=== PATIENT | male | born 1940 | race Two or more races ===

== ENCOUNTER → 2023-10-13 12:32 | Outpatient (REF) | payer MEDICARE, OTHER, SELFPAY | LOC: CLAB 12:32 | PROVIDERS: ATTENDING PHYSICIAN Otolaryngology | DX: H60.391 Other infective otitis externa, right ear (principal) | CPT/HCPCS: 87070 ==

== ENCOUNTER 2024-07-30 07:17 | Day surgery (SDC) | payer MEDICARE, OTHER, SELFPAY ==
[2024-07-26 13:04] VITALS: BMI 27.9
--- NOTE | 2024-07-26 14:26 | HPS.HSE ---
Family Physician
-
Family Physician: INTERVIEWE UNKNOWN - PT NOT
Chief Complaint
-
Coronary artery disease, status post CABG.
History of Present Illness
The patient is an 83 year old male presenting today for coronary artery disease. His primary language is [place]ian. He is accompanied by his daughter Delfina today for translation purposes. The patient did undergo a CABG in 2016 for his
multivessel coronary artery disease. Fortunately, he does remain relatively asymptomatic despite this diagnosis. His other pertinent past medical history includes hypertension, which is overall well controlled with a multidrug regimen, dyslipidemia,
and peripheral vascular disease with left lower extremity claudication. He does currently smoke 1/2 pack per day of cigarettes and has been doing so since 18 years of age. It is recommended he proceed with a left cardiac catheterization at this time
given his complex medical history and current tobacco use. He denies any current complaints today such as chest pain and shortness of breath at rest, palpitations, nausea, vomiting, diarrhea, lightheadedness, dizziness, cough, sore throat, or fever.
Medical History
Past Medical History
Past Medical History: Reports Other
Additional Past Medical History:
1. Coronary artery disease, status post CABG 2015.
2. Hypertension.
3. Hyperlipidemia.
4. New onset atrial fibrillation, pharmacological therapy with Metoprolol Succinate and oral anticoagulation with Eliquis.
5. PACs.
6. Peripheral vascular disease with left lower extremity claudication.
7. Chronic kidney disease stage III.
8. GERD.
9. Degenerative disc disease.
10. Osteoarthritis.
11. Osteomyelitis of left fifth digit middle phalanx 11/2022.
12. Mild anemia.
13. Macular degeneration.
14. Chronic, mild thrombocytopenia.
15. Current tobacco abuse.
Past Surgical History: Reports Other
Additional Past Surgical History:
1. CABG.
2. Cholecystectomy.
3. Amputation of right index, middle, and ring fingers.
Social History
Tobacco: Smoker (He is a current 1/2 pack per day cigarette smoker who has been smoking since 18 years of age. )
Alcohol: Occasional
Personal:
Living: Other (He lives in a 2 story home with his and daughter. )
Family History
Family History: Not pertinent
Allergies / Home Medications
Allergy/Medication List:
Home medications:
1. Amlodipine 5 mg p.o. daily.
2. Eliquis 5 mg p.o. twice a day.
3. Isosorbide mononitrate 30 mg p.o. daily.
4. Losartan 100 mg p.o. daily.
5. Metoprolol Succinate 25 mg p.o. daily.
6. Pantoprazole 40 mg p.o. daily.
7. Rosuvastatin 20 mg p.o. daily.
Allergies: No known allergies.
Review of Systems
-
A 12 point ROS was completed and negative except as noted: Yes
Physical Exam
Vital Signs
Blood pressure 140/74. Heart rate 72. Respirations 18. Pulse ox 96% on room air.
Height 5 feet, 7.5 inches. Weight 82.1 kg. BMI 27.9.
Physical Exam
General: Well Developed, Well Nourished and No Apparent Distress
HEENT: NormoCephalic, Moist mucous membranes, Atraumatic and PERRLA
Respiratory: Clear
Cardiac: Regular Rhythm (with occasional ectopy. )
GI: Soft, Non Tender and Non Distended
Musculoskeletal: No Edema and Normal Gait & Station
Skin: Warm and Dry
Neuro: AO x 3 and Nonfocal/grossly intact
Laboratory Results
-
DIAGNOSTIC STUDIES as of 07/26/2024: White blood cell count 6.1. Hemoglobin 12.4. Platelet count 125,000. Sodium 142. Potassium 4.2. BUN 20. Creatinine 1.3. Glucose 94. Calcium 95. Magnesium 2.0. AST 27. ALT 29. Albumin 4.9.
EKG 07/26/2024: Sinus rhythm with premature atrial complexes. Inferior infarct, age undetermined.
Nuclear stress test 04/11/2021: Fixed defects in the basal inferior, mid inferior, and apical inferior segments consistent with infarction. The ejection fraction is 48% . This is a moderate risk study due to the pharmacologic agent used.
Echocardiogram 01/25/2026: Normal left ventricular systolic function. Left ventricular ejection fraction is 65%. Mild concentric left ventricular hypertrophy. No significant valvular disease. No prior study available for comparison.
Impression/Plan
-
IMPRESSION/PLAN:
1. Coronary artery disease, status post CABG: The patient is in need of a left cardiac catheterization with Dr. Thomas Robin on 07/30/2024. The benefits and risks of the procedure have been explained to the patient. The patient understands these
risks and wishes to proceed. He is aware to hold his Eliquis 2 days prior to his procedure. While holding Eliquis, he will start Aspirin. He will continue Aspirin daily, up to and including the morning of his catheterization.
[2024-07-30] VITALS (8 sets, daily range): BP systolic 143–191; BP diastolic 74–93; BMI 25.8
[2024-07-30] MEDS: LOW STRENGTH ASPIRIN 81 MG PO (08:02)
[2024-07-30] MEDS: NSS 229 ML IV (09:32)
--- NOTE | 2024-07-30 19:57 | ITS.CL.PN ---
Sleep Lab Technician - Procedure Note
Procedure
Procedure Note:
CARDIAC CATHETERIZATION REPORT
Date of Procedure: 07/30/2024
Referring: Dr. David Mayer MD
Indication: NSVT
PROCEDURE(S)
1. left heart catheterization
2. coronary angiography
3. bypass graft angiography
ACCESS: 6F left radial artery (closure: radial band)
CATHETERS
1. 6F VEE
2. 6F JL4
3. 6F JR4
4. 6F Multipurpose
5. 6F AL1
MODERATE SEDATION: 67 minutes of moderate sedation was utilized. An independent emergency medical technician/driver was present to assist with and help manage the patient's level of consciousness and physiologic status.
ULTRASOUND GUIDED VASCULAR ACCESS (left radial artery): Ultrasound was utilized for vascular access. The vessel was visualized under ultrasound and noted to be patent. An image of the vessel was stored permanently in the patient's medical record.
Under direct ultrasound guidance, vascular access was obtained using a modified Seldinger technique and a 6 [place] sheath was placed.
HEMODYNAMIC DATA
LV 169/13 (EDP 23) mmHg
AO 175/75 (mean 114) mmHg
CORONARY ANGIOGRAPHY
Dominance: right
LM: moderate caliber vessel with minimal disease
LAD: diffusely diseased with competitive flow visualized in the mid vessel originating from the FRAZIER touchdown
LCx: diffusely diseased with one marginal branch filling antegrade and the distal vessel demonstrating competitive flow
RCA: proximally occluded after an early marginal branch
BYPASS GRAFT ANGIOGRAPHY
FRAZIER-LAD: taken as a pedicle and forms a patent anastomosis with the mid-LAD providing robust flow to the LAD
SVG-PDA: patent, fills the RDPA and RPL system
SVG-Diag: patent, fills a branching diagonal back to its LAD origin
SVG-OM: patent, fills a distal marginal branch and a more proximal marginal branch via retrograde flow
RADIATION: dose 1183 mGy; DAP 79.5 Gy*cm2; fluoroscopy time 23.7 min
CONCLUSIONS
1. coronary artery disease status post CABG with patent bypass grafts as described
2. elevated LV filling pressure and no aortic stenosis
RECOMMENDATIONS
1. expectant management after cardiac catheterization via right radial approach
2. aggressive secondary prevention of coronary artery disease
3. medical management of CHF and NSVT, likely secondary to underlying cardiomyopathy rather than ischemia
Copy to: Dr. David Mayer MD (director of counseling); [ ] (PCP)
Signed: Thomas Robin MD, PhD
== END 2024-07-30 14:00 | disposition home or self-care (01) ==
LOC: CATH 07:17
PROVIDERS: ATTENDING PHYSICIAN Student in an Organized Health Care Education/Training Program; FAMILY PHYSICIAN Internal Medicine Cardiovascular Disease; OTHER PHYSICIAN Internal Medicine Cardiovascular Disease
DX: I47.20 Ventricular tachycardia, unspecified (principal); I25.10 Atherosclerotic heart disease of native coronary artery without angina pectoris; Z95.1 Presence of aortocoronary bypass graft; I12.9 Hypertensive chronic kidney disease with stage 1 through stage 4 chronic kidney disease, or unspecified chronic kidney disease; N18.30 Chronic kidney disease, stage 3 unspecified; E78.5 Hyperlipidemia, unspecified; I48.91 Unspecified atrial fibrillation; K21.9 Gastro-esophageal reflux disease without esophagitis; I73.9 Peripheral vascular disease, unspecified; M19.90 Unspecified osteoarthritis, unspecified site; F17.210 Nicotine dependence, cigarettes, uncomplicated; Z79.01 Long term (current) use of anticoagulants; Z79.82 Long term (current) use of aspirin
CPT/HCPCS: 99152; 99153; C1769; C1894; 76937; 93459; Q9967

== ENCOUNTER → 2024-08-11 07:53 | Outpatient (REF) | payer MEDICARE, OTHER, SELFPAY | LOC: HWRCS 07:53 | PROVIDERS: ATTENDING PHYSICIAN Internal Medicine Cardiovascular Disease; FAMILY PHYSICIAN Internal Medicine | DX: I47.20 Ventricular tachycardia, unspecified (principal); I25.5 Ischemic cardiomyopathy | CPT/HCPCS: 93306 ==

== ENCOUNTER → 2024-12-20 10:16 | Outpatient (REF) | payer MEDICARE, OTHER, SELFPAY | LOC: HWRAD 10:16 | PROVIDERS: ATTENDING PHYSICIAN Internal Medicine | DX: I25.10 Atherosclerotic heart disease of native coronary artery without angina pectoris (principal); R07.89 Other chest pain | CPT/HCPCS: 71046 ==

== ENCOUNTER 2025-06-01 22:04 | Inpatient (IN) | payer MEDICARE, OTHER, SELFPAY ==
[2025-06-01 19:52] VITALS: BP 125/72
[2025-06-01 20:15] LABS: Hematocrit 30.3 % (39.0-52.0); Hemoglobin 10.4 g/dL (13.0-18.0); Mean Corp Hgb Conc. 34.3 g/dL (33.0-37.0); Mean Corpuscular Volume 85.8 fL (80.0-94.0); Nucleated Red Blood Cells % 0 % (-); Platelet Count 118 10^3/uL (130-400); Red Cell Dist. Width 15.1 % (11.5-14.5)
--- NOTE | 2025-06-01 20:31 | ED.GENMED ---
History of Present Illness
<Cyndee Hughes MD, Resident - Last Filed: 06/01/25 21:18>
General
Chief Complaint: Breathing Problem
Source: patient and family (daughter interpreting )
Exam Limitations: none
Time Seen by Provider: 06/01/25 20:11
Nursing documentation reviewed up to this point in time: agreed with
History of Present Illness
History of Present Illness:
84yo M with a hx of CAD (s/p CABG 10yr prior), active smoking, HTN, & HLD who presents with subacute dyspnea on exertion, orthopnea, & cough.
About 1 week ago, pt developed a cough (minimally productive). He subsequently began to develop worsening DAIGLE & orthopnea, needing to sleep with head propped up on pillows. Pt states it feels like he is drowning. Has not had this experience prior
except SOB in advance of his [place] requiring CABG yrs ago. Denies any HERRERA. Denies any f/c or sick contacts. Denies any CP. Pt had a fall at home a few days prior to the development of sx, where he landed on his L side and was having L rib pain for a
few days. Denies LOC or palpitations at that time; tripped outside.
Last echo Aug 2024 without reduced LVEF. Pt does not use any inhalers at home, no diuretics. Per daughter, no dx of COPD, CHF, or a fib. Per daughter, pt had recent holter monitoring completed that was read as normal. Pt takes losartan, amlodipine,
metoprolol, & eliquis.
Past History
<Cyndee Hughes MD, Resident - Last Filed: 06/01/25 21:18>
Past History
ED Past Medical History: GERD, HTN, Hypercholesterolemia and TX
ED Past Surgical History: Cardiac
Patient has exhibited threatening behavior?: No
Social History
Tobacco: Smoker
Review of Systems
<Cyndee Hughes MD, Resident - Last Filed: 06/01/25 21:18>
Review of Systems
All Other Systems: ROS reviewed and negative except as documented in HPI and ROS
Constitutional: Reports no symptoms
EENT: Reports no symptoms
Respiratory: Reports cough, trouble breathing and other (orthopnea)
Cardiac: Reports palpitations
ABD/GI: Reports no symptoms
: Reports no symptoms
Musculoskeletal: Reports no symptoms
Skin: Reports no symptoms
Neurological: Reports no symptoms
Psychiatric: Reports no symptoms
Phy Exam
<Cyndee Hughes MD, Resident - Last Filed: 06/01/25 21:18>
General Physical Exam
General Presentation: mild distress
General age: appears stated age
General Skin: warm and dry
General Habitus: normal
General Mental: alert
General Hydration: appears well hydrated
Cardiovascular Exam
Cardiovascular Exam: no edema and irregularly irregular
Heart Sounds: normal
Pulmonary Exam
Pulmonary Exam: no crackles (basilar ), generalized wheezing (wheezing in L lung marrufo) and respiratory distress (pt with tachypnea but able to speak in full sentences, no retractions or accessory muscle use; satting ~90% on RA )
Gastrointestinal Exam
Gastrointestinal Exam: non tender and non distended
Neurological Exam
Neurological Exam: alert
Musculoskeletal Exam
Musculoskeletal Exam: no edema
Skin Exam
Skin Exam: normal color and warm/dry
Psychiatric Exam
Psychiatric Exam: normal mood/affect
Scores
<Cyndee Hughes MD, Resident - Last Filed: 06/01/25 21:18>
Heart Failure Risk
Heart Failure Risk Score: Yes
History of Stroke or TIA: No
History of intubation for respiratory distress: No
Heart rate on ED arrival >/= 110: No
SaO2 <90% on arrival on room air: Yes
HR >/=110 during 3min walk test (or too ill to perform test): No
ECG has acute ischemic changes: No
Urea >/=12mmol/L (BUN 33.6mg/dL): No
Serum CO2>/=35mmol/L: No
Troponin I or T elevated to [place] Level (0.4mg/dL): No
NT-proBNP >/=5,000ng/L (5,000pg/ml): Yes
HF Risk Score: 2
Admission Status: MEDIUM RISK 9.2% Consider observation or discharge to home with homecare & f/u visit to PCP/Bus Escort, or SNF for treatment
Course
<Cyndee Hughes MD, Resident - Last Filed: 06/01/25 21:18>
Orders/Labs/Results
Orders:
Orders
06/01/25 19:56
Electrocardiogram (*1) Urgent
Reason for Study: Chest Pain
EKG- Treatment ONCE
06/01/25 20:08
Complete Blood Count/With Diff Urgent
Comprehensive Metabolic Panel Urgent
NT-proBNP Urgent
Comment: ADD ON
Troponin I Urgent
06/01/25 20:21
CXR Port [CR Chest Portable - 1 View] Urgent
Comment:
Reason For Exam: sob
Reason Study Needs to be Portable: Patient Unstable
06/01/25 20:42
Add On- LAB Urgent
Tests Added?: pro BNP
Ipratropium/Albuterol Sulfate [Duoneb] 3 ml INH R NOW ONE
06/01/25 20:47
COVID-19 Antigen Stat
Source: Nasal Swab
Influenza A+B Rapid Molecular Urgent
KRISTIE Source: Nasal Swab
Specimen Description:
06/01/25 20:53
Furosemide [Lasix] 40 mg IV NOW STA
Abnormal Lab Results
06/01/25
20:08
RBC 3.53 L 10^6/uL
(4.70-6.10)
Hgb 10.4 L g/dL
(13.0-18.0)
Hct 30.3 L %
(39.0-52.0)
RDW 15.1 H %
(11.5-14.5)
Plt Count 118 L 10^3/uL
(130-400)
Absolute Lymphs (auto) 0.9 L 10^3/uL
(1.2-3.4)
Neutrophils % 75.8 H %
(42.2-75.2)
Lymphocytes % 14.5 L %
(20.5-51.1)
Chloride 114 H mmol/L
(98-107)
Carbon Dioxide 20 L mmol/L
(22-30)
Creatinine 1.4 H mg/dL
(0.7-1.3)
Glucose 112 H mg/dl
(70-99)
Total Bilirubin 1.6 H mg/dl
(0.2-1.3)
06/01/25 20:08
06/01/25 20:08
Vital Signs
Initial and Last Documented VS:
Initial Vital Signs
Temp Pulse Resp BP Pulse Ox
98.5 F 84 28 125/72 91
06/01/25 19:52 06/01/25 19:52 06/01/25 19:52 06/01/25 19:52 06/01/25 19:52
Last Documented Vital Signs
Temp Pulse Resp BP Pulse Ox
98.5 F 75 40 125/72 94
06/01/25 19:52 06/01/25 20:17 06/01/25 20:17 06/01/25 19:52 06/01/25 20:32
<Carlos Enrique Pimentel MD - Last Filed: 06/01/25 21:07>
Orders/Labs/Results
Orders:
Orders
06/01/25 19:56
Electrocardiogram (*1) Urgent
Reason for Study: Chest Pain
EKG- Treatment ONCE
06/01/25 20:08
Complete Blood Count/With Diff Urgent
Comprehensive Metabolic Panel Urgent
NT-proBNP Urgent
Comment: ADD ON
Troponin I Urgent
06/01/25 20:21
CXR Port [CR Chest Portable - 1 View] Urgent
Comment:
Reason For Exam: sob
Reason Study Needs to be Portable: Patient Unstable
06/01/25 20:42
Add On- LAB Urgent
Tests Added?: pro BNP
Ipratropium/Albuterol Sulfate [Duoneb] 3 ml INH R NOW ONE
06/01/25 20:47
COVID-19 Antigen Stat
Source: Nasal Swab
Influenza A+B Rapid Molecular Urgent
KRISTIE Source: Nasal Swab
Specimen Description:
06/01/25 20:53
Furosemide [Lasix] 40 mg IV NOW STA
Abnormal Lab Results
06/01/25
20:08
RBC 3.53 L 10^6/uL
(4.70-6.10)
Hgb 10.4 L g/dL
(13.0-18.0)
Hct 30.3 L %
(39.0-52.0)
RDW 15.1 H %
(11.5-14.5)
Plt Count 118 L 10^3/uL
(130-400)
Absolute Lymphs (auto) 0.9 L 10^3/uL
(1.2-3.4)
Neutrophils % 75.8 H %
(42.2-75.2)
Lymphocytes % 14.5 L %
(20.5-51.1)
Chloride 114 H mmol/L
(98-107)
Carbon Dioxide 20 L mmol/L
(22-30)
Creatinine 1.4 H mg/dL
(0.7-1.3)
Glucose 112 H mg/dl
(70-99)
Total Bilirubin 1.6 H mg/dl
(0.2-1.3)
06/01/25 20:08
06/01/25 20:08
Vital Signs
Initial and Last Documented VS:
Initial Vital Signs
Temp Pulse Resp BP Pulse Ox
98.5 F 84 28 125/72 91
06/01/25 19:52 06/01/25 19:52 06/01/25 19:52 06/01/25 19:52 06/01/25 19:52
Last Documented Vital Signs
Temp Pulse Resp BP Pulse Ox
98.5 F 75 40 125/72 94
06/01/25 19:52 06/01/25 20:17 06/01/25 20:17 06/01/25 19:52 06/01/25 20:32
<Cyndee Hughes MD, Resident - Last Filed: 06/01/25 21:18>
MDM/Problems Addressed
Differential Diagnosis Includes:
Ddx:
Acute CHF (HFpEF)
PNA
Symptomatic a fib
COPD exacerbation
^may be combination of all exacerbating/triggering one another
Less likely PE, TX
MDM/Problems Addressed:
- EKG
- CMP
- Pro-BNP
- Covid, flu
- Troponin
- CXR
- Duonebs
- 2L O2 NC
- Plan for admission
<Cyndee Hughes MD, Resident - Last Filed: 06/01/25 21:18>
*Pulse Oximetry
SaO2: 94
Oxygen Mode of Delivery: Room air
Patient hypoxic: yes
*Critical Care Note
Total Time (30-74mins, 75-104mins- exclusive of procedures): Not Applicable
<Cyndee Hughes MD, Resident - Last Filed: 06/01/25 21:18>
Update Note
Update Note:
EKG demonstrating a fib; pt already on eliquis & metorpolol and with HR 75, rate controlled. Potential pre-existing dx, although pt & daughter do not recall that.
Trop not elevated but not <0.012 (at 0.024) likely 2/2 demand ischemia
CXR with some diaphragmatic flattening & with extensive cephalization c/w mild COPD & suspected CHF. Will give 40mg IV lasix.
ED Attending Note
<Cyndee Hughes MD, Resident - Last Filed: 06/01/25 21:18>
-
Portions of this chart may have been created with voice recognition software.� Occasional wrong word or��sound alike� substitutions may have occurred due to the inherent limitations of voice recognition software.
<Carlos Enrique Pimentel MD - Last Filed: 06/01/25 21:07>
ED Attending Note
Patient seen and examined by attending physician: Yes
I performed a history and physical exam of patient and discussed management with resident, I reviewed resident's note and agree with documented findings and plan of care.: Yes
ED Attending Note:
84-year-old male progressive shortness of breath over over a week to 10 days. Dyspnea on exertion. Some intermittent vague chest pain. No fever chills or cough.
On exam patient's pulse ox is 88-90 on room air. He is not however pursed lip breathing or in any acute respiratory distress. Lungs have rales in the bases with some mild expiratory wheezing. Heart irregular irregular and bradycardic. Abdomen
nontender. He is Mild lower extremity edema. He has sternotomy scar.
Anemia. EKG shows atrial fibrillation which is new. Mild renal insufficiency. Chest x-ray shows cephalization.
Impression is shortness of breath probably multifactorial. Patient is a smoker and likely has some COPD component but likely is also in heart failure. Warrants inpatient care
Discharge Plan
Departure
Patient Disposition: Admit
Date of Disposition: 06/01/25
Time of Disposition: 20:54
Admit to doctor: Laury
Presentation/result/management discussed w/ accepting MD/DO: Hospitalist
Patient with high blood pressure during this ER visit?: No
Condition: Fair
Discharge Problem:
Acute dyspnea, Orthopnea
Prescriptions:
No Action
isosorbide mononitrate 30 mg Tablet Extended Release 24 Hr
30 mg PO DAILY
amlodipine 5 mg Tablet
5 mg PO DAILY
pantoprazole 40 mg Tablet,Delayed Release (Dr/Ec)
40 mg PO DAILY
metoprolol succinate 25 mg Tablet Extended Release 24 Hr
25 mg PO DAILY
losartan 100 mg Tablet
100 mg PO DAILY
rosuvastatin 20 mg Tablet
20 mg PO DAILY
Eliquis 5 mg Tablet
5 mg PO BID
PreserVision AREDS-2 250-90-40-1 mg Capsule
1 tab PO DAILY
Referrals:
Richard Harkins MD [Family Provider, Internal Medicine]
Interventions
Interventions:
*Risk Screen - Suicide Last Done: 06/01/25 19:52
*General Assessment Last Done: 06/01/25 19:52
*Neglect/Abuse Screening Last Done: 06/01/25 20:17
*ED COVID-19 Vaccine History Last Done: 06/01/25 20:17
*ED Influenza Vaccine History Last Done: 06/01/25 20:17
Discharge Date and Time
Print Language: Prydeinig
[2025-06-01 20:38] LABS: ALT (SGPT) 21 U/L (0-50); AST (SGOT) 26 U/L (17-59); Albumin 4.2 g/dl (3.5-5.0); Alkaline Phosphatase 53 U/L (38-126); Blood Urea Nitrogen 20 mg/dl (9-20); Calcium 9.2 mg/dl (8.4-10.2); Carbon Dioxide 20 mmol/L (22-30); Chloride 114 mmol/L (98-107); Glucose 112 mg/dl (70-99); Potassium 4.4 mmol/L (3.5-5.1); Sodium 141 mmol/L (135-145); Total Protein 7.2 g/dl (6.3-8.2); Troponin I 0.024 ng/ml; eGFR 49.87
[2025-06-01] MEDS: DUONEB 3 ML INH (20:53)
[2025-06-01 21:00] VITALS: BP 160/57
[2025-06-01] MEDS: LASIX 40 MG IV (21:00)
--- NOTE | 2025-06-01 21:07 | HPS.HSE ---
Addendum entered and electronically signed by Klaudia Kirk MD 06/01/25 21:47:
This is an addendum to H&P written by Gudelia Peraza on 06/01/2025. �Patient seen and examined independently with BOTTOM [employer]ER.
84-year-old male past medical history of CAD status post CABG, atrial fibrillation on Eliquis, PACs, hypertension, hyperlipidemia, peripheral vascular disease, CKD 3, GERD, degenerative disease, osteoarthritis, osteomyelitis of left fifth middle
phalanx, mild anemia, macular degeneration, chronic thrombocytopenia, active smoker, presenting with 1 week of worsening cough, shortness of breath with exertion and orthopnea. �Did have some chest pressure with breathing earlier.
He fell few days ago onto his left side left rib pain. �No chest pain.
Vital signs unremarkable. �O2 saturation 90% room air.
Labs show cardiac BNP 6000. �Troponin 0.024. �Creatinine stable 1.4. �Chest x-ray pending. �EKG shows atrial fibrillation without ischemic changes
Patient with likely acute CHF exacerbation with component of undiagnosed COPD. �Lasix, cardiology. �COVID and flu pending. �Trend troponins. �DuoNebs as needed.
Original Note:
Family Physician
-
Family Physician: Richard Harkins
Chief Complaint
-
dyspnea on exertion, orthopnea and moist cough
History of Present Illness
Patient is a 84-year-old male with past medical history significant for CAD, hypertension, hyperlipidemia, atrial fibrillation, chronic kidney disease stage III and GERD who presented to [facility] ED for evaluation for dyspnea on exertion, orthopnea and
moist cough. Patient is primary Irish speaking, daughter at bedside to assist in translation. Patient reports a fall 10-12 days ago where he tripped in garden and fell on left side, denies head strike or major injury. He states following that is
when mosit cough, nonproductive began with increasing exertional dyspnea and orthopnea. Denies recent fever, chills, palpitations, nausea, vomiting, constipation, diarrhea or urinary symptoms.
Medical History
Past Medical History
Past Medical History: Reports Other
Additional Past Medical History:
coronary artery disease, status post CABG 2015
hypertension
hyperlipidemia
atrial fibrillation, pharmacological therapy with Metoprolol Succinate and oral anticoagulation with Eliquis
PACs
peripheral vascular disease with left lower extremity claudication
chronic kidney disease stage III
GERD
degenerative disc disease
osteoarthritis
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
mild anemia
macular degeneration
chronic, mild thrombocytopenia
current tobacco abuse
Past Surgical History: Reports Other
Additional Past Surgical History:
CABG
cholecystectomy
amputation of right index, middle, and ring fingers
Social History
Tobacco: Smoker (He is a current 1/2 pack per day cigarette smoker who has been smoking since 18 years of age. )
Alcohol: Occasional
Personal:
Living: With Family (He lives in a 2 story home with his and daughter. )
Family History
Family History: Not pertinent
Allergies / Home Medications
Allergies reflects when Allergies were last updated in [employer].
Home Medications with original date entered in [employer]
Allergy/Medication List:
Allergies
Allergy/AdvReac Type Severity Reaction Status Date / Time
No Known Allergies Allergy Verified 06/01/25 19:50
Home Medications
amlodipine 5 mg tablet 5 mg PO DAILY 07/22/24
apixaban 5 mg tablet (Eliquis) 5 mg PO BID Blood Clot Prevention/Tx 07/22/24
isosorbide mononitrate 30 mg tablet,extended release 24 hr 30 mg PO DAILY Heart Disease/Condition 07/22/24
losartan 100 mg tablet 100 mg PO DAILY Blood Pressure 07/22/24
metoprolol succinate 25 mg tablet,extended release 24 hr 25 mg PO DAILY Heart Disease/Condition 07/22/24
pantoprazole 40 mg tablet,delayed release 40 mg PO DAILY Gastrointestinal Issue 07/22/24
rosuvastatin 20 mg tablet 20 mg PO DAILY High Cholesterol 07/22/24
vit C 250 mg-vit E 90 mg-zinc 40 mg-copper 1 [id number] capsule (PreserVision AREDS-2) 1 tab PO DAILY Supplement 07/30/24
Review of Systems
-
History Source: Patient and Family
Constitutional: Reports Weight Loss; Denies Fever, Weight Gain or Chills
EENT: Denies Sore Throat
Respiratory: Reports Cough (moist, nonproductive ) and Trouble Breathing (exertional dyspnea ); Denies Hemoptysis
Cardiac: Reports Chest Pain; Denies Diaphoresis, Palpitations or Syncope
Abdomen/GI: Denies Abdominal Pain, Nausea, Vomiting or Diarrhea
: Denies Dysuria, Frequency or Urgency
Musculoskeletal: Denies Joint Pain
Skin: Denies Rash
Neurological: Denies Dizzy, Headache, Weakness or Numbness
Endocrine: Denies Polyuria
Physical Exam
Vital Signs
Vital Signs
Temp Pulse Resp BP Pulse Ox
98.5 F 75 40 125/72 94
06/01/25 19:52 06/01/25 20:17 06/01/25 20:17 06/01/25 19:52 06/01/25 20:32
Physical Exam
General: Well Developed, Well Nourished, No Apparent Distress, Comfortable and Conversant
HEENT: NormoCephalic, Moist mucous membranes, PERRLA, Nose Appears Normal and Ears Appear Normal
Respiratory: Clear, Wheezes, Non Labored Respirations and Other (Oxygen 2L NC)
Cardiac: Irregular Rhythm; No Murmur or Peripheral Edema
GI: Soft, Non Tender, Non Distended and Normal Bowel Sounds
Musculoskeletal: No Clubbing, No Cyanosis and No Edema
Skin: Warm and IV/Catheter Site
Neuro: Awake and AO x 3
Psych: Calm
Laboratory Results
-
06/01/25 20:08
06/01/25 20:08
Laboratory Results
Total Bilirubin 1.6 mg/dl (0.2-1.3) H 06/01/25 20:08
AST 26 U/L (17-59) 06/01/25 20:08
ALT 21 U/L (0-50) 06/01/25 20:08
Alkaline Phosphatase 53 U/L (38-126) 06/01/25 20:08
Troponin I 0.024 ng/ml 06/01/25 20:08
Data Reviewed
-
Medical Tests (Nuc Med, Echo, EKG etc): Report Reviewed by me (EKG: ATRIAL FIBRILLATION MINIMAL VOLTAGE CRITERIA FOR LVH, MAY BE NORMAL VARIANT ( R in aVL ) INFERIOR INFARCT (CITED ON OR BEFORE 26-Jul-2024))
Lab Data: Labs Reviewed by me (creat 1.4, eGFR 49.87, trop 0.024, pBNP 5970)
Impression/Plan
-
IMPRESSION/PLAN:
#exertional dyspnea, orthopnea and moist nonproductive cough 2/2 PNA vs. CHF vs. symptomatic a-fib
no previous CHF diagnosis, no COPD diagnosis
wheezes on exam in ED with Neb treatment that was mildly effective per patient with dyspnea
trop 0.024, pBNP 5970
EKG: ATRIAL FIBRILLATION
MINIMAL VOLTAGE CRITERIA FOR LVH, MAY BE NORMAL VARIANT ( R in aVL )
INFERIOR INFARCT (CITED ON OR BEFORE 26-Jul-2024)
CXR: pending
- Admit to telemetry
- Consult cardiology
- IV Lasix 40mg daily
- daily weights
- I & Os
- trend troponin
#hypertension
- continue amlodipine and losartan
#hyperlipidemia
- continue rosuvastatin
#atrial fibrillation
- continue Eliquis and metoprolol
#GERD
- continue pantoprazole
#nicotine dependency
daily smoke, approximately 1/2 pack per day
- nicotine patch
- encourage cessation
#CAD
s/p CABG
- continue Imdur
#chronic kidney disease stage III
creat 1.4, eGFR 49.87
appears stable
- monitor BMP
Code status: full code
DVT prophylaxis: Eliquis
[2025-06-01 21:22] LABS: COVID-19 Antigen Negative (Negative)
[2025-06-01 22:00] VITALS: BP 123/107
[2025-06-01 23:00] VITALS: BP 134/69
--- NOTE | 2025-06-01 23:07 | PTCARENOTE ---
received pt from ED. pt pulled over from bed to stretcher. pt A&O x 3, Norwegian speaking, daughter at bedside. pt offers no current complains. bed alarm on, call huddleston within reach. plan of care ongoing.
[2025-06-02 02:14] LABS: Troponin I 0.028 ng/ml
[2025-06-02 03:00] VITALS: BP 160/91
[2025-06-02 08:00] VITALS: BP 95/73
[2025-06-02 08:08] LABS: Troponin I 0.025 ng/ml
[2025-06-02 08:13] LABS: Blood Urea Nitrogen 19 mg/dl (9-20); Calcium 9.2 mg/dl (8.4-10.2); Carbon Dioxide 26 mmol/L (22-30); Chloride 111 mmol/L (98-107); Glucose 124 mg/dl (70-99); HDL Cholesterol 30 mg/dl; LDL Cholesterol, Calculated 34 mg/dl; Potassium 3.5 mmol/L (3.5-5.1); Sodium 142 mmol/L (135-145); Very Low Density Lipoprotein 22 mg/dl (0-30); eGFR 49.87
[2025-06-02] MEDS: PROTONIX 40 MG PO (09:09)
[2025-06-02] MEDS: NORVASC 5 MG PO (09:09)
[2025-06-02] MEDS: ELIQUIS 5 MG PO ×2 (09:10→19:57)
[2025-06-02] MEDS: IMDUR (EXTENDED RELEASE) 30 MG PO (09:10)
[2025-06-02] MEDS: OCUVITE SOFTGEL 1 CAP PO (09:10)
[2025-06-02] MEDS: NICODERM TRANSDERMAL 14 MG TRANSDERM (09:10)
[2025-06-02] MEDS: COZAAR 100 MG PO (09:10)
[2025-06-02] MEDS: CRESTOR 20 MG PO (09:10)
[2025-06-02] MEDS: TOPROL XL 25 MG PO (09:11)
[2025-06-02] MEDS: LASIX 40 MG IV ×2 (09:11→19:57)
--- NOTE | 2025-06-02 10:03 | CON.CAR ---
Consultation
Consultation Request
Date/Time Consultation Requested: 06/01/2025 at 22:45
Date/Time Consultation Performed: 06/02/2025 at 9:30
Requesting Provider: FREDO Shukla
Performing Provider: Rohit Sánchez MD
Reason for Consultation: SOB
Medical History
-
Chief Complaint: cough, dyspnea
History of Present Illness:
84-year-old man with past medical history of multivessel CAD s/p CABG, hypertension, hyperlipidemia, CKD, persistent atrial fibrillation, peripheral vascular disease, and active tobacco use who presents with cough and dyspnea for the past 5 days.
Cough is nonproductive. He denies fever or sick contacts. He does have some orthopnea but no lower extremity edema. He has been losing weight. He has received 2 doses of IV Lasix and breathing feels improved.
Past Medical History
Past Medical History: Other (As above)
Past Surgical History: Cardiac (CABG)
Social History
Tobacco: Smoker
Living: With Family
Family History
Family History: Reviewed & Not Pertinent
Allergies / Home Medications
Allergy/AdvReac Type Severity Reaction Status Date / Time
No Known Allergies Allergy Verified 06/01/25 19:50
�Medication �Instructions �Recorded �Confirmed �Type
amlodipine 5 mg tablet 5 mg PO DAILY 07/22/24 06/01/25 History
apixaban 5 mg tablet (Eliquis) 5 mg PO BID Blood Clot 07/22/24 06/01/25 History
Prevention/Tx
isosorbide mononitrate 30 mg 30 mg PO DAILY Heart 07/22/24 06/01/25 History
tablet,extended release 24 hr Disease/Condition
losartan 100 mg tablet 100 mg PO DAILY Blood Pressure 07/22/24 06/01/25 History
metoprolol succinate 25 mg 25 mg PO DAILY Heart 07/22/24 06/01/25 History
tablet,extended release 24 hr Disease/Condition
pantoprazole 40 mg tablet,delayed 40 mg PO DAILY Gastrointestinal 07/22/24 06/01/25 History
release Issue
rosuvastatin 20 mg tablet 20 mg PO DAILY High Cholesterol 07/22/24 06/01/25 History
vit C 250 mg-vit E 90 mg-zinc 40 1 tab PO DAILY Supplement 07/30/24 06/01/25 History
mg-copper 1 [id number]
capsule (PreserVision AREDS-2)
Review of Systems
-
All other systems: Negative unless noted
Physical Exam
Vital Signs
Temp Pulse Resp BP Pulse Ox
98.6 F 64 18 162/73 96
06/02/25 08:00 06/02/25 09:09 06/02/25 08:00 06/02/25 09:09 06/02/25 08:00
Lab Results
06/01/25 20:08
06/02/25 06:49
Troponin I 0.025 ng/ml 06/02/25 06:49
Awe-V-Tanqitbeabs Pept Cancelled 06/01/25 20:41
Physical Exam
General: Well Developed, Well Nourished and No Apparent Distress
Respiratory: Clear and Non Labored Respirations
Cardiac: S1/S2 and Regular Rhythm; Negative Murmur or Peripheral Edema
Neuro: AO x 3
Impression / Plan
-
84-year-old man with past medical history of multivessel CAD s/p CABG, hypertension, hyperlipidemia, CKD, persistent atrial fibrillation, peripheral vascular disease, and active tobacco use who presents with cough and dyspnea for the past 5 days.
Cardiology is consulted due to concern for CHF exacerbation.
Cardiology: David Mayer MD
Hypoxic respiratory failure
-Requiring supplemental O2 via nasal cannula
-Most likely due to acute on chronic HFpEF as below
-Wean oxygen as tolerated
HFpEF, acute on chronic
-Severe exacerbation requiring IV diuresis and close monitoring of labs and telemetry
-Admission CXR with pulmonary edema. NT proBNP 5970 (no prior). Weight today is 171 pounds (stable from January office visit)
-TTE August 2024: LVEF 55-60%, aortic sclerosis
-Continue IV Lasix. Will increase to twice daily.
Persistent atrial fibrillation
-Rate controlled and asymptomatic
-Continue home metoprolol and Eliquis 5 mg twice daily ([id number] 5)
Coronary artery disease s/p CABG
-[facility] in July 2024 with patent grafts
-Continue Eliquis and rosuvastatin
Hypertension
-Continue home metoprolol, losartan, amlodipine, and isosorbide
-Trend BP with diuresis
CKD
-Creatinine at baseline (1.4)
-Trend with diuresis
Data Reviewed
-
EKG: Tracing Personally Visualized and interpreted
Radiology: Image Personally Visualized and interpreted, Report Reviewed by me, Discussed with Patient and Discussed with Family
Medical Tests (Nuc Med, Echo etc): Report Reviewed by me
Labs: Labs Reviewed by me and Discussed with Physician
[2025-06-02 11:13] VITALS: BP 121/68
[2025-06-02 13:16] LABS: Troponin I 0.024 ng/ml
--- NOTE | 2025-06-02 13:44 | W.PN.HOSP.TC ---
Today's Communication/Plan
-
see note
Assessment / Plan
Assessment / Plan
1. Acute heart failure exacerbation -type unknown
-Chest x-ray showing interstitial pulmonary edema
-Elevated proBNP ~ 6k
- Patient getting IV diuretics, frequency increased to twice daily by cardiology
-Monitor weight and creatinine
-Follow-up echocardiogram pending
2. Acute hypoxic respiratory insufficiency
-Wean of oxygen as possible
3. Active tobacco use
Possible COPD
- Reported 50-60 pack years of smoking history, denies of having any formal diagnosis of COPD
-Wheezing on exam
- suspecting component of COPD, will discuss with family that patient would benefit with outpatient PFT
-Maintain on DuoNeb as needed
4. Troponin elevation
-Nonischemic myocardial injury related
5. Permanent A-fib
-Currently rate controlled
-Maintain on home dose of Toprol-XL and Eliquis
6. Peripheral vascular disease -rule out
-Complaining of lower extremity warmth/sensation changes at time
-Decreased bilateral dorsalis pedis and posterior tibialis pulse
-With extensive history of smoking we will get routine ultrasound lower extremity/SAEED checked
7. CAD
s/p CABG
- continue Imdur
8. chronic kidney disease stage IIIB
- maintain on cr 1.4/ GFR 50
Code status: full code
DVT prophylaxis: Eliquis
care plan discussed with cardiology
Total time spent : 55 mins
I personally saw and examined the patient.
I have reviewed all diagnostic interpretations and treatment plans as written.
Time includes patient management by me, time spent at the patients bedside, time to review lab and imaging results, discussing patient care, documentation in the medical record, and time spent with the family or caregiver and discussing care plan
with RN/Consultants.
Anticipated Discharge: 24 - 48 hours
Subjective/Interval History
-
Date of Service: June 02, 2025
Marshallese-speaking, lens edge grinder machine service used for this encounter
Complaining of dry cough no shortness of breath
Denies chest pain/palpitation
Complaining some lower extremity warmth/sensation twisting frame changer the time
Objective Data
-
Labs:
Laboratory Results
06/02/25
06:49
Sodium 142
Potassium 3.5
Chloride 111 H
Carbon Dioxide 26
BUN 19
Creatinine 1.4 H
Glucose 124 H
Calcium 9.2
Vital Signs:
Vital Signs
Temp Pulse Resp BP Pulse Ox
98 F 67 18 121/68 95
06/02/25 11:13 06/02/25 11:13 06/02/25 11:13 06/02/25 11:13 06/02/25 11:13
I&O
06/01/25 06/02/25 06/03/25
06:59 06:59 06:59
Intake Total 480 / 480
Output Total 1260 / 1260 600 / 600
Balance -1260 / -1260 -120 / -120
Review of Systems
-
Respiratory: Reports Cough; Denies Trouble Breathing
Cardiac: Reports No Symptoms
Abdomen/GI: Reports No Symptoms
Physical Exam
-
General: Obese
HEENT: Oxygen (3L NC)
Respiratory: Wheezes and Rhonchi
Cardiac: Regular Rhythm and S1/S2; Negative Murmur
Musculoskeletal: No Edema and Other (Decreased bilateral dorsalis pedis/posterior tibialis pulse)
Neuro: Awake, Alert and Oriented
[2025-06-02 16:12] VITALS: BP 145/75
[2025-06-02 19:00] VITALS: BP 125/69
[2025-06-02 23:00] VITALS: BP 115/59
[2025-06-03] VITALS (7 sets, daily range): BP systolic 110–137; BP diastolic 56–77; O2SAT 85–97
[2025-06-03] MEDS: ELIQUIS 5 MG PO ×2 (08:44→20:00)
[2025-06-03] MEDS: OCUVITE SOFTGEL 1 CAP PO (08:44)
[2025-06-03] MEDS: COZAAR 100 MG PO (08:44)
[2025-06-03] MEDS: PROTONIX 40 MG PO (08:44)
[2025-06-03] MEDS: IMDUR (EXTENDED RELEASE) 30 MG PO (08:45)
[2025-06-03] MEDS: TOPROL XL 25 MG PO (08:45)
[2025-06-03] MEDS: NORVASC 5 MG PO (08:45)
[2025-06-03] MEDS: CRESTOR 20 MG PO (08:45)
[2025-06-03] MEDS: NICODERM TRANSDERMAL 14 MG TRANSDERM (08:45)
[2025-06-03 08:46] LABS: Blood Urea Nitrogen 28 mg/dl (9-20); Calcium 9.3 mg/dl (8.4-10.2); Carbon Dioxide 26 mmol/L (22-30); Chloride 109 mmol/L (98-107); Glucose 130 mg/dl (70-99); Potassium 3.5 mmol/L (3.5-5.1); Sodium 142 mmol/L (135-145); eGFR 49.87
[2025-06-03] MEDS: LASIX 40 MG IV (11:11)
--- NOTE | 2025-06-03 11:33 | PN.CDI ---
CDI
- -
CDI:
Physician Documentation Request
Admit Date: 06/01/25 22:04
Dear Doctor Kirit,
Please review the following and provide your response in the progress notes.
Clinical Indicators:
- 06/02 Cardiology 'persistent atrial fibrillation'
- 06/02 PN 'Permanent A-fib'
If possible, please provide further specificity regarding atrial fibrillation, such as:
Persistent atrial fibrillation - episodes of continuous AF that last more than 7 days and do not self-terminate
Permanent atrial fibrillation - when a decision has been made to accept the presence of AF and there is no further attempt to restore or maintain sinus rhythm
Other - please specify
Use of terms such as suspected, likely, concern for, or probable (associated with a specific diagnosis that is being evaluated, monitored, or treated as if it exists) are acceptable and can be coded in the inpatient setting, when documented at the
time of discharge.
Thank you,
Kathleen Esparza RN
CDI Specialist
Please use your independent medical judgment in providing your response.
--- NOTE | 2025-06-03 11:48 | PN.CDI ---
CDI
- -
CDI:
Physician Documentation Request
Admit Date: 06/01/25 22:04
Dear Doctor Kirit,
Please review the following and provide your response in the progress notes.
Clinical Indicators:
The diagnosis of Nonischemic myocardial injury was documented on 06/02 PN but is not consistently noted in subsequent documentation.
- 06/02 PN 'Troponin elevation...Nonischemic myocardial injury related'
-
Laboratory Tests
06/01/25 06/02/25 06/02/25
20:08 01:24 12:37
Troponin I 0.024 0.028 0.024
Please clarify the following:
____ - Nonischemic myocardial injury was present on admission and is based on and treated by
____ - Nonischemic myocardial injury was ruled out
____ - Other
Use of terms such as suspected, likely, concern for, or probable (associated with a specific diagnosis that is being evaluated, monitored, or treated as if it exists) are acceptable and can be coded in the inpatient setting, when documented at the
time of discharge.
Thank you,
Kathleen Esparza RN
CDI Specialist
Please use your independent medical judgment in providing your response.
--- NOTE | 2025-06-03 12:26 | W.PN.HOSP.TC ---
Addendum entered and electronically signed by Savage Beth MD 06/03/25 14:48:
Patient have amb hypoxia with spo2 dropping to 85% on RA on ambulation
will add IV dexamethasone 4mg q12h for now, assuming component of COPD flare up
Addendum entered and electronically signed by Savage Beth MD 06/03/25 13:51:
Troponin elevation - non ischemic myocardial injury related
Persistent atrial fibrillation - monitor
Original Note:
Today's Communication/Plan
-
Maintain diuretic therapy
Ambulatory oxygen check
follow-up echocardiogram/lower extremity arterial Doppler
Assessment / Plan
Assessment / Plan
1. Acute heart failure exacerbation -type unknown
-Chest x-ray showing interstitial pulmonary edema
-Elevated proBNP ~ 6k
- Patient getting IV diuretics, frequency increased to twice daily by cardiology
- Weight is down trended patient lost 3 pounds in last 24hrs
-Follow-up echocardiogram pending
2. Acute hypoxic respiratory insufficiency
-amb o2 check requested
3. Active tobacco use
Possible COPD
- Reported 50-60 pack years of smoking history, denies of having any formal diagnosis of COPD
-Wheezing on exam resolved today.
-suspecting component of COPD, discussed with family for need of follow-up with pulmonology in office for PFT/further assessment
-Maintain on DuoNeb as needed
4. Troponin elevation
-Nonischemic myocardial injury related
5. Permanent A-fib
-Currently rate controlled
-Maintain on home dose of Toprol-XL and Eliquis
6. Peripheral vascular disease -rule out
-Complaining of lower extremity warmth/sensation changes at time
-Decreased bilateral dorsalis pedis and posterior tibialis pulse
-With extensive history of smoking we will get routine ultrasound lower extremity/SAEED checked
7. CAD
s/p CABG
- continue Imdur
8. chronic kidney disease stage IIIB
- maintain on cr 1.4/ GFR 50
Code status: full code
DVT prophylaxis: Eliquis
Discussed with Patient Daughter at Bedside
Anticipated Discharge: 24 - 48 hours
Subjective/Interval History
-
Date of Service: June 03, 2025
Patient daughter at bedside and helping with history gathering/encounter today
Patient denies of having any excessive shortness of breath
No productive cough reported
no other acute issues reported overnight
Objective Data
-
Labs:
Laboratory Results
06/03/25
07:53
Sodium 142
Potassium 3.5
Chloride 109 H
Carbon Dioxide 26
BUN 28 H
Creatinine 1.4 H
Glucose 130 H
Calcium 9.3
Vital Signs:
Vital Signs
Temp Pulse Resp BP Pulse Ox
97.7 F 76 18 129/56 98
06/03/25 11:48 06/03/25 11:48 06/03/25 11:48 06/03/25 11:48 06/03/25 11:48
I&O
06/02/25 06/03/25 06/04/25
06:59 06:59 06:59
Intake Total 680 / 680
Output Total 1260 / 1260 1900 / 1900
Balance -1260 / -1260 -1220 / -1220
Review of Systems
-
Respiratory: Denies Cough or Trouble Breathing
Cardiac: Reports No Symptoms
Abdomen/GI: Reports No Symptoms
Physical Exam
-
General: Obese
HEENT: Oxygen (3L NC)
Respiratory: Clear to Auscultation; Negative Wheezes
Cardiac: Regular Rhythm and S1/S2; Negative Murmur
Musculoskeletal: No Edema and Other (Decreased bilateral dorsalis pedis/posterior tibialis pulse)
Neuro: Awake, Alert and Oriented
[2025-06-03] MEDS: DECADRON 4 MG IV (16:28)
--- NOTE | 2025-06-03 18:25 | CM ---
IA completed with use of video interpret and Palauan speaking nurse.
Pt lives with his , dtr adn grandchildren in a 2 story home with 2 steps at the entrance. there are 13 steps to the second floor.No hx of DME, home O2 HH or SNF. No food insecurities identified. Confirmed PCP, Rx, insurance. Pt states he does
not have drug plan.
PCP: Luis Eduardo Portillo
Rx: Pt does not know which pharmacy he uses, states he does not use [facility] as indicated in the computer
Pt states he does not want to have O2 at home . 'I want to breath the fresh air.
Maintain diuretic therapy
Ambulatory oxygen check
follow-up echocardiogram/lower extremity arterial Doppler
Plan: TBD. DC to home. Pt may need home O2 and or VN
[2025-06-03] MEDS: LASIX IV (20:26)
--- NOTE | 2025-06-03 20:55 | W.PN.CD ---
Today's Communication / Plan
-
Continue twice daily IV diuresis
Impression / Plan
-
84-year-old man with past medical history of multivessel CAD s/p CABG, hypertension, hyperlipidemia, CKD, persistent atrial fibrillation, peripheral vascular disease, and active tobacco use who presents with cough and dyspnea for the past 5 days.
Cardiology is consulted due to concern for CHF exacerbation.
Cardiology: David Mayer MD
Hypoxic respiratory failure
-Requiring supplemental O2 via nasal cannula
-Most likely due to acute on chronic HFpEF as below
-IV dexamethasone added per primary team for possible COPD flare
-Wean oxygen as tolerated
HFpEF, acute on chronic
-Severe exacerbation requiring IV diuresis and close monitoring of labs and telemetry
-Admission CXR with pulmonary edema. NT proBNP 5970 (no prior). Weight today is down to 168 pounds
-TTE 06/03/2025: LVEF 55-60%, mild LVH, no VHD
-Continue twice daily IV Lasix
Persistent atrial fibrillation
-Rate controlled and asymptomatic
-Continue home metoprolol and Eliquis 5 mg twice daily ([id number] 5)
Coronary artery disease s/p CABG
-[facility] in July 2024 with patent grafts
-Continue Eliquis and rosuvastatin
Hypertension
-Continue home metoprolol, losartan, amlodipine, and isosorbide
-Trend BP with diuresis
CKD
-Creatinine at baseline (1.4)
-Trend with diuresis
Subjective: Used Kosovan dockworker phone for interpretation. Patient reports that he feels excellent. Hospitalist note from earlier today states that SpO2 dropped to 85% on room air on ambulation. Dexamethasone was added.
Physical Exam
Vital Signs/Labs
Vital Signs
Temp Pulse Resp BP Pulse Ox
98.4 F 67 18 130/61 93
06/03/25 19:48 06/03/25 19:48 06/03/25 19:48 06/03/25 19:48 06/03/25 19:48
06/02/25 06/03/25 06/04/25
06:59 06:59 06:59
Actual Weight 171 lb 8 oz 168 lb 3 oz
06/01/25 20:08
06/03/25 07:53
Triglycerides 112 mg/dl (10-149) 06/02/25 06:49
LDL Cholesterol, Calc 34 mg/dl 06/02/25 06:49
VLDL Cholesterol, Calc 22 mg/dl (0-30) 06/02/25 06:49
HDL Cholesterol 30 mg/dl 06/02/25 06:49
06/01/25 06/01/25
20:08 20:41
Qny-S-Kgtiglnnulx Pept 5970 Cancelled
LAB Results
06/01/25 06/02/25 06/02/25
20:08 01:24 06:49
Troponin I 0.024 0.028 0.025
06/02/25 06/02/25
12:37 20:10
Troponin I 0.024 Cancelled
Physical Exam
Constitutional: No acute distress and Comfortable
Cardiovascular: Pedal edema is absent, Rhythm/rate is irregular, S1S2 is normal and Murmur/rub/gallop absent
Respiratory: Respiratory effort normal and Lungs clear to auscul.
Neuro/Psych: AO x 3
Data Reviewed
-
Date of Service: June 03, 2025
Medical Decision Making: Reviewed Test Results, Test Interpretation and Review of Case with other Provider
EKG: Tracing Personally Visualized and interpreted
Echo: Report Reviewed by me
Labs: Labs Reviewed by me
[2025-06-04] MEDS: DECADRON 4 MG IV ×2 (00:17→09:17)
[2025-06-04 03:43] VITALS: BP 125/77
[2025-06-04 07:35] VITALS: BP 140/81
[2025-06-04 08:22] LABS: Blood Urea Nitrogen 35 mg/dl (9-20); Calcium 9.2 mg/dl (8.4-10.2); Carbon Dioxide 25 mmol/L (22-30); Chloride 106 mmol/L (98-107); Glucose 158 mg/dl (70-99); Potassium 4.2 mmol/L (3.5-5.1); Sodium 139 mmol/L (135-145); eGFR 45.91
[2025-06-04 08:35] VITALS: BP 140/81
[2025-06-04] MEDS: LASIX 40 MG IV (09:17)
[2025-06-04] MEDS: TOPROL XL 25 MG PO (09:18)
[2025-06-04] MEDS: NICODERM TRANSDERMAL 14 MG TRANSDERM (09:18)
[2025-06-04] MEDS: CRESTOR 20 MG PO (09:18)
[2025-06-04] MEDS: COZAAR 100 MG PO (09:19)
[2025-06-04] MEDS: NORVASC 5 MG PO (09:19)
[2025-06-04] MEDS: ELIQUIS 5 MG PO (09:19)
[2025-06-04] MEDS: IMDUR (EXTENDED RELEASE) 30 MG PO (09:19)
[2025-06-04] MEDS: PROTONIX 40 MG PO (09:19)
[2025-06-04] MEDS: OCUVITE SOFTGEL 1 CAP PO (09:19)
--- NOTE | 2025-06-04 10:14 | W.PN.CD ---
Addendum entered and electronically signed by Clyde Cruz MD 06/04/25 12:26:
I saw and evaluated the patient, and I provided the substantive portion of the medical decision making.
I reviewed and agree with the note by Ms Wolef and it accurately reflects our care.
I personally performed the medical decision making of the this encounter and my assessment and plan is below: \\
PO diuretics
f/u home publicity director
OK to d/c
Original Note:
Today's Communication / Plan
-
Will transition to PO diuretic. Needs BMP with publicity director or PCP in 1 week. Close follow-up with publicity director (Dr. Mayer) after d/c.
Impression / Plan
-
84-year-old man with past medical history of multivessel CAD s/p CABG, hypertension, hyperlipidemia, CKD, persistent atrial fibrillation, peripheral vascular disease, and active tobacco use who presents with cough and dyspnea for the past 5 days.
Cardiology is consulted due to concern for CHF exacerbation.
Cardiology: David Mayer MD
Hypoxic respiratory failure
-Requiring supplemental O2 via nasal cannula
-Most likely due to acute on chronic HFpEF as below
-IV dexamethasone added per primary team for possible COPD flare
-Wean oxygen as tolerated- nursing to assess this AM since yesterday he desatted to 85% on RA with walking
HFpEF, acute on chronic:
-improved with weight down about 6 lbs. Currently about 168 lbs. 170 lbs is around his norm per patient. He did decline his second dose of IV lasix yesterday per nursing. Creat up slightly today. Will transition to PO lasix.
-TTE 06/03/2025: LVEF 55-60%, mild LVH, no VHD
Persistent atrial fibrillation
-Rate controlled and asymptomatic
-continue metoprolol and Eliquis
Coronary artery disease s/p CABG
-[facility] in July 2024 with patent grafts
-Continue Eliquis and rosuvastatin
Hypertension
-stable
-continue meds
CKD
-baseline creatinine 1.4
-currently 1.5 - will need to be monitored as OP
Dispo: Discussed with nurse and hospitalist- Assessing for need for O2 and possible d/c.
Family in room and helped translate and patient and I were able to communicate effectively.
Physical Exam
Vital Signs/Labs
Vital Signs
Temp Pulse Resp BP Pulse Ox
98.0 F 79 16 140/81 95
06/04/25 07:35 06/04/25 07:35 06/04/25 07:35 06/04/25 07:35 06/04/25 07:35
06/03/25 06/04/25 06/05/25
06:59 06:59 06:59
Actual Weight 168 lb 2 oz
06/01/25 20:08
06/04/25 07:14
Triglycerides 112 mg/dl (10-149) 06/02/25 06:49
LDL Cholesterol, Calc 34 mg/dl 06/02/25 06:49
VLDL Cholesterol, Calc 22 mg/dl (0-30) 06/02/25 06:49
HDL Cholesterol 30 mg/dl 06/02/25 06:49
06/01/25 06/01/25
20:08 20:41
[id number] Pept 5970 Cancelled
LAB Results
06/01/25 06/02/25 06/02/25
20:08 01:24 06:49
Troponin I 0.024 0.028 0.025
06/02/25 06/02/25
12:37 20:10
Troponin I 0.024 Cancelled
Physical Exam
Constitutional: No acute distress
EENT: Anicteric
Cardiovascular: Rhythm & rate is regular
Respiratory: Respiratory effort normal and Other (on O2 by NC)
Neuro/Psych: AO x 3
Data Reviewed
-
Date of Service: June 04, 2025
EKG: Other (Tele - rate-controlled AFIB)
Labs: Labs Reviewed by me
[2025-06-04 11:07] VITALS: BP 145/60
--- NOTE | 2025-06-04 12:19 | W.DCSUMMARY ---
Discharge Summary
Discharge Data
Date of Admission: 06/01/25
Date of Discharge: 06/04/25
-
Pending Results: No
Hospital Course
Discharging Physician : Dr Savage Beth
Disposition : To home
Primary care physician : Dr Richard Harkins
Principal Discharge diagnosis :
Diastolic heart failure exacerbation
Possible undiagnosed chronic obstructive pulmonary disease with flare
Acute hypoxic respiratory insufficiency
Peripheral vascular disease
Troponin elevation from nonischemic myocardial injury related
Chronic Discharge diagnosis :
Tobacco use disorder, active
Permanent atrial fibrillation
Coronary disease with history of bypass
Chronic kidney disease stage IIIb
Obesity
Essential hypertension
Physical examination:
General: Obese
HEENT: on room air.
Respiratory: Clear to Auscultation; Negative Wheezes
Cardiac: Regular Rhythm and S1/S2; Negative Murmur
Musculoskeletal: No Edema and Other (Decreased bilateral dorsalis pedis/posterior tibialis pulse)
Neuro: Awake, Alert and Oriented
Hospital Course :
Patient is a 84-year-old male who is primarily Ethiopian-speaking came to ER with new onset of exertional dyspnea, dry cough and orthopnea. In ER on evaluation patient was noted to having elevated proBNP minimally elevated troponin and chest x-ray
showing interstitial pulmonary edema. Patient have history of coronary artery disease/bypass and there was concern of having heart failure exacerbation patient was started on IV diuretics and cardiology was involved in care. Patient had a
follow-up echocardiogram which showed preserved ejection fraction. Patient had improvement in symptoms of dyspnea/hypoxia with diuretic therapy. At discharge cardiology recommended for patient to be maintained on oral Lasix 40 mg daily with
follow-up with primary cardiology in office.
Patient was also noted to be wheezing. Patient is current active smoker with approximately 14-51-gpye-year smoking history. Patient denied of having formally diagnosed for COPD. IV Decadron and nebulizer therapy were added to treatment regimen.
At discharge patient was provided short course of steroid taper and albuterol rescue inhaler. A pulmonology office number provided for patient to follow-up for having formal PFT done to rule in or out COPD.
Patient was also complaining of some sensation changes/warmth on lower extremity. Patient had decreased pulsation on exam. 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 In right leg
patient have infrapopliteal disease. These findings were discussed with patient family and have recommended to follow-up with vascular surgeon in few weeks.
Important imaging findings :
LE arterial doppler
Right leg: SAEED mild to moderately reduced measuring 0.74. TBI decreased measuring 0.41. Multiphasic flow within the common femoral through popliteal arteries with no focal stenosis appreciated. Discrepant pedal waveforms with monophasic flow within
the posterior tibial artery suggestive of infrapopliteal disease.
Left leg: Multiphasic flow within the common femoral artery. Stenosis at the origin of the profunda femoris artery with velocities measuring 438 cm/s. Mid segment SFA occlusion with reconstitution of monophasic continuous flow distally. Monophasic
pedal waveforms.
Chest xray
Prominence of the bilateral pulmonary vascular markings, most suspicious for interstitial pulmonary edema. New compared to the previous chest radiograph. No large pleural effusion or pneumothorax. Sternotomy wires. Stable cardiomediastinal
silhouette. Chronic degenerative changes of the spine.
Echocardiogram
1. Normal biventricular size and systolic function without regional wall motion abnormality. LVEF 55-60%.
2. Mild concentric left ventricular hypertrophy.
3. No significant valvular disease.
4. No prior study available for comparison.
Procedure findings :
None
Discharge Plan
-
Patient Disposition: Home with Home Care
Discharge Diagnosis/Procedures: Hypoxic respiratory insufficiency, Diastolic HF exacerbation, Presumed COPD with flare up
Condition: Fair
Diet: 2 Gram Sodium
Activity: As tolerated
Driving Restrictions: No driving
Bathing Restrictions: OK to Shower
Blood Work: BMP in 1 week with PCP or director private
Instructions: Quitting smoking for adults
Referrals:
Richard Harkins MD [Family Provider, Internal Medicine] - in one week
David Mayer MD [Active, Cardiology] - in one week
Referral Note: Please call to arrange this
Daniel Mathur MD [Active, Vascular Surgery] - in four to six weeks
Prescriptions:
New
albuterol sulfate [Ventolin HFA] 90 mcg/actuation HFA aerosol inhaler
2 puff inhalation Q6H PRN (Reason: shortness of breath or wheezing) Qty: 8.5 1RF
prednisone 10 mg Tablet
See Rx Instructions .ROUTE .COMPLEX Qty: 30 0RF
Rx Instructions:
Take By Mouth:
40 mg daily x3 days, 30 mg daily x3 days,
20 mg daily x3 days, 10 mg daily x3 days.
furosemide [Lasix] 40 mg tablet
40 mg PO DAILY Qty: 30 1RF
Continued
isosorbide mononitrate 30 mg Tablet Extended Release 24 Hr
30 mg PO DAILY
amlodipine 5 mg Tablet
5 mg PO DAILY
pantoprazole 40 mg Tablet,Delayed Release (Dr/Ec)
40 mg PO DAILY
metoprolol succinate 25 mg Tablet Extended Release 24 Hr
25 mg PO DAILY
losartan 100 mg Tablet
100 mg PO DAILY
rosuvastatin 20 mg Tablet
20 mg PO DAILY
Eliquis 5 mg Tablet
5 mg PO BID
PreserVision AREDS-2 250-90-40-1 mg Capsule
1 tab PO DAILY
Discharge Date and Time
Print Language: Ethiopian
[2025-06-04 12:55] VITALS: BP 136/68
--- NOTE | 2025-06-04 14:43 | CM ---
Pt is discharged home with [facility] for diagnosis of new onset CHF. Referral entered into [facility]. Dr. Savage Beth placed a referral for VN.
Daughter, Delfina, is the primary contact for [facility] as she will be the death surveys coder. Her phone number is [phone]. she will be taking him home in her care
== END 2025-06-04 14:40 | disposition home health service (06) | DRG 291 ==
LOC: 4 EAST ACU 22:04
PROVIDERS: Emergency Medicine; Nurse Practitioner Family; ADMITTING PHYSICIAN Hospitalist; ATTENDING PHYSICIAN Hospitalist; EMERGENCY PHYSICIAN Emergency Medicine; FAMILY PHYSICIAN Internal Medicine; OTHER PHYSICIAN Student in an Organized Health Care Education/Training Program
DX: I13.0 Hypertensive heart and chronic kidney disease with heart failure and stage 1 through stage 4 chronic kidney disease, or unspecified chronic kidney disease (principal); I50.33 Acute on chronic diastolic (congestive) heart failure; I48.19 Other persistent atrial fibrillation; F17.210 Nicotine dependence, cigarettes, uncomplicated; I5A Non-ischemic myocardial injury (non-traumatic); Z11.52 Encounter for screening for COVID-19; R09.02 Hypoxemia; R06.89 Other abnormalities of breathing; Z79.01 Long term (current) use of anticoagulants; Z95.1 Presence of aortocoronary bypass graft; I25.10 Atherosclerotic heart disease of native coronary artery without angina pectoris; J44.9 Chronic obstructive pulmonary disease, unspecified; N18.30 Chronic kidney disease, stage 3 unspecified; Z79.899 Other long term (current) drug therapy
CPT/HCPCS: 71045; 80048; 80053; 80061; 83880; 84484; 85025; 87502; 87811; 93005; 93306; 93922; 93925; 94640; 96374; 97163; 99285; 99406